=== PATIENT | female | born 1950 | race Caucasian/White ===

== ENCOUNTER 2021-03-08 07:08 | Inpatient (IN) | payer OTHER ==
[~2021-03-08] VITALS: Ht 165.1 cm; Wt 74.4 kg
[~2021-03-08 07:08] MED LIST: ALEVE220 M1 PO; B COMPLEX1 EACH PO; BI-EST TOP; CO-ENZYME Q101 EACH PO; CURCUMIN1 GM PO; K2-4545 MCG PO; KRILL OIL500 MG PO; MAGNESIUM CITR125 MG PO; NORVASC10 MG PO; OSTEO BI-FLEX1 EAC2 PO; PROGESTERONE100 MG PO; SLEEP AID25 MG PO; VALSARTAN-HCTZ1 EAC2 PO; VITAMIN B-125000 MCG SUBLING; VITAMIN C250 MG PO; VITAMIN D350 MC3 PO
[2021-03-08 08:26] VITALS: BP 150/87
[2021-03-08 13:15] VITALS: BP 109/59
--- NOTE | 2021-03-08 20:06 | NUR ---
ASSUMED PT CARE FROM PACU AT 1330. PT IS ALERT & ORIENTED X4. PT HAS IV SITE ON R HAND 20 GAUGE. PT HAS ROLANDO HOSES BILATERAL THIGH HIGH, POLAR CARE AND SCD. PT HAS HEMOVAC AND LISA WRAP ON R KNEE. LAST BM WAS YESTERDAY. PT IS ON ROOM AIR. PT TOLERATED MEDICATION AND DIET WELL. PT C/O OF PAIN AND GIVEN PAIN MEDICATION PER PT REQUEST. NO C/O OF NAUSEA AND VOMITING DURING THE SHIFT. PT AT THE BEDSIDE. PT ON THE BED, BED ON THE LOWEST POSITION, SIDE RAILS UP, CALL LIGHT WITHIN REACH. WILL CONTINUE TO MONITOR PT. FOLLOW POC.
[2021-03-09 05:46] VITALS: BP 125/69
[2021-03-09 06:02] LABS: HEMATOCRIT 32.4 % (37.0-47.0); MCH 28.8 pg (26.0-34.0); MCHC 33.9 g/dL (28.0-37.0); RBC 3.81 mil/uL (4.20-5.00); RDW 13.5 % (10.5-14.5); WBC 12.2 thou/uL (4.0-11.0)
[2021-03-09 06:19] LABS: CALCIUM 8.4 mg/dL (8.5-10.1); POTASSIUM 3.5 mmol/L (3.5-5.1)
[2021-03-09 07:25] VITALS: BP 121/61
--- NOTE | 2021-03-09 07:58 | NUR ---
patient used bedside commode this shift. pain controlled this shift. scd on. ice polar pack for the rt knee is up and working. darryn wrap on right kneee is c/d/i. fall precaution in place. patient in bed asleep at this time breathing regular and unlaboured.
--- NOTE | 2021-03-09 08:20 | O ---
[facility] [place] [address] OPERATIVE REPORT Name: ANDRY MONIQUE Room #: 445-P [facility]#: [id number] Admission: 03/08/21 Attend Phys: Franklyn Drew MD Discharge: Date of : 48 Report #: [id number] THIS REPORT FOR: cc: Physician not on staff Physician not on staff Franklyn Drew MD ~ DATE OF SERVICE: 03/08/2021 PREOPERATIVE DIAGNOSIS: End-stage degenerative arthritis, right knee. POSTOPERATIVE DIAGNOSIS: End-stage degenerative arthritis, right knee. PROCEDURE: Right total knee arthroplasty. SURGEON: Franklyn Drew MD INDICATIONS: This slender, fit and active 70-year-old female complains of progressive right knee pain. Clinical and radiographic evaluation revealed moderate valgus malalignment and complete collapse in the lateral compartment. She has tried conservative measures without much benefit. She has decided to go ahead with right total knee arthroplasty. DESCRIPTION OF PROCEDURE: The patient was taken to the operating room where she was placed under general anesthesia. A femoral nerve block was also applied. The right knee and leg were meticulously prepped and draped and a thigh tourniquet inflated to 300 mmHg. An anterior longitudinal skin incision was made and carried along the medial retinaculum. The patella was reflected laterally. Moderately severe degenerative change in the lateral compartment and moderate damage at the patella and the medial compartment was noted. The Sullivan and Nephew knee system was utilized. Intramedullary guides were used on both the femur and the tibia. The femur was cut in 5 degrees of valgus, which corrected nicely the severe preoperative valgus position. The tibia was cut perpendicular to the long axis of the bone. The femur was best suited for a size 5 press fit femoral component. The tibia was best suited for a size 4 tibial component. A trial reduction was performed and a size 9 mm insert seemed to fit nicely. This resulted in satisfactory alignment and range of motion and stability. The patellar surface was resected and a 32 mm patellar button fit nicely. Appropriate anchor holes were created. The trial components were removed. The surfaces were thoroughly irrigated and dried. Methyl methacrylate cement was mixed and injected into the porous surface of the tibia. The Sullivan and Nephew size 4 Abril II right nonporous tibial baseplate was impacted into position. It seated nicely and appeared to be secure. All excess cement was removed around its margin. A size 4 Legion cruciate retaining high flexion polyethylene insert with a 9 mm thickness was selected. This was tapped into position and it [place] [address] OPERATIVE REPORT Name: ANDRY MONIQUE Damaris Room #: 445-P [facility]ben.#: [id number] Admission: 03/08/21 Attend Phys: Franklyn Drew MD Discharge: Date of : 48 Report #: [id number] baseplate. A size 5 right cruciate retaining Legion porous femoral component was impacted on the distal femur. It also seated nicely and appeared to be secure. A 32 mm patellar button was cemented into place using appropriate anchor holes. A patellar clamp was used until the cement had hardened. Once the cement was firm, alignment, range of motion and stability was once again assessed and felt to be satisfactory. A single Hemovac was left in the wound exiting through a separate stab incision. The synovium and capsule was closed with 2-0 Monocryl. The fascia was closed with 0 Vicryl. The subcutaneous tissues were closed with 0 Monocryl. The skin was closed with skin jadyn. A sterile dressing was applied. The patient was awakened and returned to recovery room in good condition. <ELECTRONICALLY SIGNED> By: Franklyn Drew MD 03/09/21 0820 1040 1201 Franklyn Drew MD /nt
--- NOTE | 2021-03-09 14:08 | NUR ---
ASSESSMENT: CM REVIEWED CHART AND SPOKE WITH PATIENT AT THE BEDSIDE. PT IS S/P RIGHT TOTAL KNEE REPLACEMENT. PT REPORTS LIVING IN A HOUSE WITH HER . PT HAS TWO STEPS WITH A HANDRAIL TO ENTER. PT REPORTS ONCE INSIDE THERE IS NO STEPS SHE HAS TO USE. PT REPORTS SHE IS NORMALLY FULLY INDEPENDENT WITH ADLS AND AMBULATION. PT WORKED WITH PHYSICAL THERAPY AND THEY ARE RECOMMENDING A WALKER FOR PATIENT. PT HAS NO PREFERENCE OF [employer]. CM NOTIFIED [employer] WHO VERIFIED INSURANCE AND WILL DELIVER A WALKER TO THE PATIENT IN THE AM. PT REPORTS SHE IS POSSIBLY INTERESTED IN OUTPATIENT THERAPY AT [facility]. CM WILL CONTINUE TO FOLLOW TO ASSIST NEEDED.
[2021-03-09 16:05] VITALS: BP 126/68
--- NOTE | 2021-03-09 16:17 | NUR ---
ASSUMED PT CARE THIS AM. PT C/O OF PAIN AND NAUSEA WHILE WORKING WITH PHYSICAL THERAPY. GIVEN PAIN AND NAUSEA MEDICATION PER PT REQUEST. INFORMED DR THAT ONDANSETRON FOR NAUSEA IS NOT EFFECTIVE TO PT. GIVEN NEW ORDER OF NAUSEA MEDICATION PER PT REQUEST. DID NOT DO WELL WITH PHYSICAL THERAPY. PT AT THE BEDSIDE. PT ON THE BED, BED ON THE LOWEST POSITION, SIDE RAILS UP, CALL LIGHT WITHIN REACH. WILL CONTINUE TO MONITOR PT. FOLLOW POC.
[2021-03-09 20:05] VITALS: BP 125/62
--- NOTE | 2021-03-10 00:25 | NUR ---
PATIENT A&OX4. VERY PLEASANT. NO COMPLAINTS OF PAIN. POLAR PACK ON RIGHT TOTAL KNEE SIGHT. RIGHT ARM SALINE LOCK LEAKING. IV REMOVED. NO NEW IV PLACED AT THIS TIME. NO IV MEDICATIONS. UP WITH ASSISTANCE. FALL RISK PRECAUTIONS REMAIN IN PLACE. PATIENT SLEEPING. WILL CONTINUE TO MONITOR.
[2021-03-10 03:30] VITALS: BP 145/75
[2021-03-10 05:45] LABS: HEMOGLOBIN 10.5 gm/dL (12.0-15.0); MCH 28.8 pg (26.0-34.0); MCHC 33.9 g/dL (28.0-37.0); RBC 3.65 mil/uL (4.20-5.00); RDW 13.2 % (10.5-14.5); WBC 8.8 thou/uL (4.0-11.0)
[2021-03-10 08:50] VITALS: BP 131/65
[2021-03-10 11:35] VITALS: BP 131/65
--- NOTE | 2021-03-10 11:36 | NUR ---
ON-GOING ASSESSMENT: CM REVIEWED CHART AND SPOKE WITH PATIENT. PT HAD SOME NAUSEA WITH MOBILITY TODAY AND REPORTS NO FEELING THE BEST AND UNSURE IF SHE WILL LEAVE TODAY. PT IS TO WORK WITH THERAPY THIS AFTERNOON. CM REVIEWED CHART AND PER ATTENDING LIKELY DISCHARGE HOME WITH HH ONCE MEDICALLY STABLE EITHER LATER TODAY VS TOMORROW. CM SPOKE WITH PT ABOUT SERVICES AND SHE IS PREFERRING HOME HEALTH AND HAS NO PREFERENCE OF HH AGENCY. CM SENT REFERRAL TO [facility] AND NOTIFIED LIANEMESIO GRAY. [facility] CAN ACCEPT AT TIME OF DISCHARGE. CM WILL CONTINUE TO FOLLOW.
[2021-03-10 17:31] VITALS: BP 141/72
[2021-03-10 19:13] VITALS: BP 147/63
--- NOTE | 2021-03-11 00:23 | NUR ---
PATIENT A&OX3 THIS SHIFT. WAS AT THE BEDSIDE. MENTIONED THAT WAS HAVING HALLUCINATIONS TODAY. SEEING THINGS AND OTHER PEOPLE THAT WERE NOT PRESENT. DR. MONTILLA HERE TO SEE PATIENT THIS EVENING. RECOMMENDING HOLDING OFF ON NARCOTICS AND OBTAINING AN UA. UA WAS COLLECTED AND SENT TO LAB. TYLENOL GIVEN FOR PAIN. WILL CONTINUE TO MONITOR.
[2021-03-11 03:31] LABS: HEMATOCRIT 28.1 % (37.0-47.0); HEMOGLOBIN 9.7 gm/dL (12.0-15.0); MCH 29.1 pg (26.0-34.0); MCHC 34.4 g/dL (28.0-37.0); MCV 84.8 fL (80.0-100.0); RBC 3.32 mil/uL (4.20-5.00); RDW 13.3 % (10.5-14.5); WBC 8.3 thou/uL (4.0-11.0)
[2021-03-11 04:16] VITALS: BP 150/75
[2021-03-11 07:21] VITALS: BP 139/82
[2021-03-11 07:41] LABS: URINE BILIRUBIN NEGATIVE (Negative); URINE BLOOD TRACE (Negative); URINE CLARITY CLEAR; URINE COLOR YELLOW; URINE GLUCOSE-RANDOM* NEGATIVE (Negative); URINE KETONES 3+ (Negative); URINE LEUKOCYTES-REFLEX NEGATIVE (Negative); URINE NITRITE-REFLEX NEGATIVE (Negative); URINE PROTEIN (DIPSTICK) TRACE (Negative); URINE UROBILINOGEN 0.2 E.U./dl (0.2-1.0)
--- NOTE | 2021-03-11 07:54 | D ---
[facility] [address] DISCHARGE SUMMARY Name: ANDRY MONIQUE Room #: 445-P [facility] [place] .R.#: [id number] Admission: 03/10/21 Attend Phys: Franklyn Drew MD Discharge: Date of : 48 Report #: [id number] THIS REPORT FOR: cc: Physician not on staff Physician not on staff Franklyn Drew MD ~ DATE OF SERVICE: 03/10/2021 FINAL DIAGNOSIS: End-stage degenerative arthritis, right knee. OPERATIVE PROCEDURE: Right total knee arthroplasty. HISTORY: This 70-year-old female is fit, healthy, active and independent. She has progressive degenerative arthritis involving the right knee. She has decided to go ahead with right total knee arthroplasty. HOSPITAL COURSE: The patient was admitted and taken to the operating room. On 03/08/2021, she underwent right total knee arthroplasty, which went nicely. Postoperatively, she does have moderate discomfort, which is managed with oral pain medication. She is starting physical therapy and is making progress, but is not yet fully active and independent. She is back on a regular diet and tolerating that well. Her x-rays look good. Her dressing is dry. Her hemoglobin is stable. She will continue with therapy today. Pending progress she may be able for discharge either late today or tomorrow morning. We will plan for home visiting physical therapy for the coming week or 2 and then planned outpatient therapy following that. I will plan to see her back in my office in 1 week for followup and in 2 weeks for suture removal. DISCHARGE MEDICATIONS: Include Xarelto 10 mg daily, hydrocodone 5 or 10 mg every 3 hours as needed for pain, valsartan/hydrochlorothiazide 160/25 once daily, amlodipine 10 mg daily, vitamin B12 5000 mcg daily, CoQ12 multivitamin 200 mg daily. She will call me if any problems or questions. I will plan to see her back in my office in 1 week. <ELECTRONICALLY SIGNED> By: Franklyn Drew MD 03/11/21 0754 [id number] 0732 Franklyn Drew MD /nt
--- NOTE | 2021-03-11 11:05 | NUR ---
ASSUMED PT CARTE THIS AM. PT A&OX4, ABLE TO MAKE NEEDS KNOWN. PATIENT COOPERATIVE WITH CARES. PATIENT HAS NO IV ACCESS. PAIN MANAGED WITH PAIN MEDICATION GIVEN PER EMAR. PATIENT REMAINS CONTINENT, UP TO BEDSIDE COMMODE WITH ASSIST. PATIENT REPORTING NO NUMBNESS OR TINGLING. FALL PRECAUTIONS ARE IN PLACE, CALL LIGHT WITHIN REACH.
--- NOTE | 2021-03-11 13:25 | NUR ---
ON-GOING ASSESSMENT: CM REVIEWED CHART AND SPOKE PATIENT. PT WAS EVALUATED BY [facility] AND THEY CAN ACCEPT. HOWEVER, PATIENT WORKED WITH PHYSICAL THERAPY TODAY AND SHOWING MUCH IMPROVEMENT AND PT IS PREFERRING TO GO HOME WITH HOME HEALTH AT DISCHARGE. CM UPDATED [facility] WHO HAS ACCEPTED PATIENT AND NOTIFIED OF LIKELY DISCHARGE TOMORROW. [facility] IS AWARE. CM WILL CONTINUE TO FOLLOW TO ASSIST NEEDED. PTS WALKER WAS DELIVERED TO HER ROOM BY [employer]. CM WILL CONTINUE TO FOLLOW TO ASSIST NEEDED.
[2021-03-11] MEDS ORDERED: ULTRA-LIGHT RO1 EACH (15:06)
[2021-03-11 16:03] VITALS: BP 150/87
[2021-03-11 20:10] VITALS: BP 132/72
--- NOTE | 2021-03-12 02:58 | NUR ---
PT IS A/O X4 AND IS UP WITH ASSISTANCE X1 TO THE BSC USING WALKER AND GB. PLEASANT AND COOPERATIVE. FORGETFUL AT TIMES. ROOM AIR. VSS AFEBRILE. MEDICATIONS GIVEN PER MAR. C/O PAIN TO KNEE. PRN PAIN MEDICATION GIVEN DIRECTED. FALL PRECAUTIONS IN PLACE, CALL LIGHT IS WITHIN REACH. WILL CONTINUE TO MONITOR.
[2021-03-12 07:25] VITALS: BP 145/77
--- NOTE | 2021-03-12 12:04 | NUR ---
ASSUMED CARE OF PT AT 0700 THIS MORNING. PT HAD TTL KNEE REPLACEMTN RT. PT IS A/OX4 SLIGHTLY FORGETFUL. LUNGS ARE CLEAR WITH SOME DIMINISHED LOWER, SKIN INTACT WITH INCISION SITE AT RT KNEE WITH VIKY DRESSING, ROLANDO BILAT AND LISA WRAP. POLAR PK GOING WITH PT ON DISCHARGE. POLAR PK WAS REPLACED THIS MORNING DUE TO LEAKING HOSE. NO TENTING AND DISTAL PULSES STRONG AND PRESENT X4. ASSESSMENTS NOTED IN CHART AND OTHERWISE UNREMARKABLE. IV DC'D DUE TO DISCHARGING. MEDS AND TX GIVEN NEEDED AND SCHEDULED. MONITORING PT AND NOTING ANY CHANGES.
--- NOTE | 2021-03-12 13:38 | NUR ---
Patient to discharge today with care. Faxed orders to [facility]. Sp with Devante in intake who rec orders for start of care. no further needs
== END 2021-03-12 13:25 | disposition home health service (06) | DRG 470 ==
LOC: PRE → 4S 07:08 → TBA 07:08 → PRE 09:33 → OR 09:33 → PRE 09:33 → EDSTATUS 09:35 → PRE 09:45 → 4S 13:13 → PRE 15:09 → 4S 03-10 15:00
PROVIDERS: Hospitalist; ADMIT Orthopaedic Surgery; ATTEND Orthopaedic Surgery
PROC: 3E0T3BZ Introduction of Anesthetic Agent into Peripheral Nerves and Plexi, Percutaneous Approach (ICD-10-PCS; principal; 2021-03-08)
PROC: 0SRC0J9 Replacement of Right Knee Joint with Synthetic Substitute, Cemented, Open Approach (ICD-10-PCS; principal; 2021-03-08)
DX: M17.11 Unilateral primary osteoarthritis, right knee (principal); D62 Acute posthemorrhagic anemia; I10 Essential (primary) hypertension; E78.5 Hyperlipidemia, unspecified; K08.409 Partial loss of teeth, unspecified cause, unspecified class; R01.1 Cardiac murmur, unspecified; D69.6 Thrombocytopenia, unspecified; R41.0 Disorientation, unspecified; T50.905A Adverse effect of unspecified drugs, medicaments and biological substances, initial encounter; Z90.721 Acquired absence of ovaries, unilateral; Y92.89 Other specified places as the place of occurrence of the external cause
CPT/HCPCS: 10102; 50010; 50101; 50415; 50954; 51130; 51225; 51320; 51412; 52001; 52282; 56525; 57095; 57103; 57104; 57180; 58449; 62110; 62900; 64043; 65060; 70005